=== PATIENT | male | born 1930 | race Caucasian/White ===

== ENCOUNTER 2016-11-10 19:23 | Emergency (ER) | payer MEDICARE ==
[2016-11-10 20:11] VITALS: BP 172/73
[2016-11-10] MEDS ORDERED: Lidocaine 1% MPF* 2 ML VIAL ONE (20:23)
--- NOTE | 2016-11-10 20:28 | UC ---
Laceration HPI - HPI Summary HPI Summary: TRIPPED AND FELL ABOUT 2 HRS [employer]. STRUCK LEFT SIDE OF HEAD ON FLOOR. NO LOC. PT IS ON PLAVIX. UP TO DATE TETANUS. - History Of Current Complaint Chief Complaint: UCLaceration Stated Complaint: HEAD LACERATION Time Seen by Provider: 11/10/16 20:00 Hx Obtained From: Patient, Family/Repair Mechanic - Laceration Location: Head - LEFT SIDE SCALP Mechanism Of Injury: Blunt Trauma Onset/Duration: Sudden Onset, Lasting Hours, Still Present Severity: Moderate Pain Intensity: 5 Pain Scale Used: 0-10 Numeric - Allergies/Home Medications Allergies/Adverse Reactions: Allergies Allergy/AdvReac Type Severity Reaction Status Date / Time Fluoxetine [From Prozac] AdvReac Intermediate Dizziness Verified 11/10/16 19:41 exalon patch AdvReac Intermediate Dizziness Uncoded 11/10/16 19:41 Home Medications: Home Medications Atorvastatin* [Lipitor 20 MG*] 20 mg PO QPM 11/10/16 [History Confirmed 11/10/16 ] Clopidogrel TAB* [Plavix TAB*] 75 mg PO DAILY 11/10/16 [History Confirmed ] Cyanocobalamin TAB* [Vitamin B12 TAB*] 1,000 mcg PO DAILY 11/10/16 [History Confirmed 11/10/16] Divalproex DR TAB(*) [Depakote DR TAB(*)] 1 tab DAILY 11/10/16 [History Confirmed 11/10/16] Metoprolol Succinate XL TAB* [Toprol XL TAB*] 1 tab DAILY 11/10/16 [History Confirmed 11/10/16] [place]-3 Fatty Acids [Fish Oil] 1,000 mg PO 11/10/16 [History] Pyridoxine TAB* [Vitamin B6 TAB*] 100 mg PO DAILY 11/10/16 [History Confirmed ] PMH/Surg Hx/FS Hx/Imm Hx Endocrine History Of: Denies: Diabetes, Thyroid Disease Cardiovascular History Of: Reports: Cardiac Disorders - AV bundle branch block/ stress test in a few months, Hypertension - no meds currently Respiratory History Of: Denies: COPD, Asthma GI/ History Of: Denies: Ulcer - Surgical History Surgical History: Yes Surgery Procedure, Year, and Place: 194 hand surgery; repair, 3 stents 2013, pacemaker 2013, cataract surgery 2012, corrective lenses - Family History Known Family History: Positive: Cardiac Disease, Hypertension, Other - CVA - Social History Alcohol Use: Daily Alcohol Amount: glass of champagne Substance Use Type: None Smoking Status (MU): Never Smoked Tobacco - Immunization History Most Recent Influenza Vaccination: 2016 Most Recent Tetanus Shot: within last 10 years Most Recent Pneumonia Vaccination: UTD Review of Systems Constitutional: Negative Skin: Other - LACERATION Eyes: Negative Respiratory: Negative Cardiovascular: Negative Gastrointestinal: Negative Neurological: Other - DIZZY All Other Systems Reviewed And Are Negative: Yes Physical Exam Triage Information Reviewed: Yes Appearance: Well-Appearing, No Pain Distress, Well-Nourished Vital Signs: Initial Vital Signs Temp 97.8 F 11/10/16 19:52 Pulse 62 11/10/16 19:52 Resp 18 11/10/16 19:52 BP 172/73 11/10/16 19:52 Pulse Ox 96 11/10/16 19:52 Vital Signs Reviewed: Yes Eyes: Positive: Conjunctiva Clear ENT: Positive: Hearing grossly normal, Pharynx normal, TMs normal Neck: Positive: Supple, Nontender Respiratory: Positive: No respiratory distress, No accessory muscle use Cardiovascular: Positive: Pulses Normal Abdomen Description: Positive: Soft Musculoskeletal: Positive: No Edema Neurological: Positive: Alert Psychological: Positive: Normal Response To Family, Age Appropriate Behavior Skin: Positive: Other - 1.5CM LINEAR LACERATION LEFT SCALP Laceration Repair - Laceration Repair 1 Description: Linear Laceration Size After Repair: Length (cm) - 1.5CM, Width (mm) - 0MM, Depth (mm) - 3MM Modified For Repair: No Type Injection: Local Anesthesia Used: 1.0% Lido Irrigation With Pressure Irrigation Device: Yes Closure Material: Victorino - #2 Suture Of: Skin Laceration Course/Dx - Differential Dx - Laceration/Wound Provider Diagnoses: SCALP LACERATION REPAIR - VICTORINO Discharge - Discharge Plan Condition: Stable Disposition: HOME Patient Education Materials: Laceration (ED), Staple Care (ED) Referrals: Sharath Villa MD [Primary Care Provider] - If Needed Additional Instructions: SEEK FOLLOW-UP IF YOU DEVELOP SPREADING REDNESS OF THE SKIN, PURULENT DRAINAGE, FEVER, INCREASED PAIN OR ANY OTHER CONCERNING SYMPTOMS. RETURN FOR SUTURE REMOVAL IN 10 DAYS
== END 2016-11-10 20:50 | disposition home or self-care (01) ==
LOC: UCEAST 19:23
DX: S01.01XA Laceration without foreign body of scalp, initial encounter (principal); W01.0XXA Fall on same level from slipping, tripping and stumbling without subsequent striking against object, initial encounter; Y93.9 Activity, unspecified; Y92.9 Unspecified place or not applicable; I45.4 Nonspecific intraventricular block; Z95.5 Presence of coronary angioplasty implant and graft; Z95.0 Presence of cardiac pacemaker; Z98.49 Cataract extraction status, unspecified eye
CPT/HCPCS: 12001; 99202; G0463